=== PATIENT | male | born 1945 | race Caucasian/White ===

== ENCOUNTER 2021-03-20 07:52 | Outpatient (CLI) | payer MEDICARE, SELFPAY ==
[2021-03-20 09:29] LABS: Basophils # 0.1 10^3/uL (0.0-0.1); Basophils % 0.9 %; Eosinophils # 0.1 10^3/uL (0.0-0.8); Eosinophils % 0.7 %; Hemoglobin 17.3 g/dL (11.7-16.6); Lymphocytes % 30.4 %; Mean Corpuscular HGB Conc 33.9 g/dL (30.0-36.0); Mean Corpuscular Hemoglobin 32.3 pg (28.0-34.0); Mean Corpuscular Volume 95.1 fl (80-94); Mean Platelet Volume 10.3 fL (7.4-10.4); Monocytes # 0.5 10^3/uL (0.2-0.9); Neutrophils % 59.6 %; Nucleated Red Blood Cells % 0 %; Platelet Count 113 10^3/cmm (130-400); Red Blood Count 5.36 10^6/uL (4.1-5.3); Red Cell Distribution Width 12.3 % (12.1-15.1); White Blood Count 6.7 10^3/uL (4.0-10.0)
[2021-03-20 09:48] LABS: Alanine Aminotransferase 59 U/L (0-41); Albumin Level 4.2 g/dL (3.5-5.2); Alkaline Phosphatase 64 IU/L (40-130); Anion Gap 17.3 (5-19); Aspartate Amino Transferase 50 U/L (0-40); Blood Urea Nitrogen 10 mg/dL (8-23); Carbon Dioxide 22 mmol/L (22-29); Chloride 101 mmol/L (98-107); Ferritin 546 ng/mL (30-400); Globulin 4.1 g/dL (1.3-4.6); Glucose 147 mg/dL (65-115); Iron 92 ug/dL (59-158); Osmolality Calculated 284 mOsm/kg (285-295); Percent Saturation 29.7 % (20-50); Potassium 4.3 mmol/L (3.5-5.1); Sodium 136 mmol/L (136-145); Total Bilirubin 0.6 mg/dL (0.15-1.2); Total Iron Binding Capacity 309 mcg/dl; Total Protein 8.3 g/dL (6.6-8.7); Unsaturated Iron Binding 217 ug/dL (112-347)
[2021-03-20 10:34] LABS: Tumor Marker Alpha Fetoprotein 5.7 ng/mL (0-8.3)
--- NOTE | 2021-03-20 14:39 | ONC CON_ITS ---
Dr. Ascencio New Patient Note Patient: Emmanuel Damon Unit #: [id number]: 1945 Dicatated By: Abhinav Ascencio M.D.Date of Visit: Mar 20, 2021 Onc MED New Patient/Consult Referring Physician: Dr. Abhinav Murillo M.D. Chief Complaint: Elevated transferrin saturation and ferritin. History of Present Illness: This is a 75-year-old man with elevated transferrin saturation and an elevated ferritin level. He also was found to have a lesion in the liver on hepatic ultrasound. He has hypertension, hyperlipidemia, and type 2 diabetes. He has, however, been in good general health. On his scheduled follow-up with Dr. Murillo in February 2021 he was noted to have mildly elevated liver enzymes. His additional laboratory studies on 02/19/2021 included CBC showing hemoglobin borderline high at 17.6 g with hematocrit 51.5%. The white blood cell count was 8100 and the platelet count was 129,000. Comprehensive metabolic profile showed normal renal function with BUN 16 and creatinine 0.8 mg/dL. Bilirubin was borderline high at 1.2 mg/dL with SGOT elevated at 89.0 U/L and SGPT elevated at 89.0 U/L. The alkaline phosphatase was normal at 68.0 U/L. His viral hepatitis screen was negative. His serum iron studies showed elevated transferrin saturation at 56% and his ferritin was elevated at 648 ng/mL. An abdominal ultrasound showed a slightly enlarged gallbladder. The liver showed an area of heterogeneous echotexture in the left lobe measuring 2.7 x 3.3 x 3.4 cm, possibly adenoma or hemangioma and less likely a metastatic lesion or primary cancer, but those were not excluded. He says he has been feeling fine. He has normal energy and activity tolerance. ECOG score 0. His appetite has been good and his weight has been stable. He has no fever or night sweats. He has not complained of shortness of breath, cough, or chest pain. He has had no abdominal pain or other GI symptoms. He has no complaints. He has no significant joint or bone pain. He does not complain of headache or dizziness. He has no numbness/paresthesia or other focal neurologic symptoms. Past Medical History: His medical history includes hyperlipidemia, hypertension, and type II diabetes. He has a history of nephrolithiasis. Past Surgical History: He has had no prior surgeries. Medications: Atorvastatin Calcium 1 Tablet (of 10 mg) Oral daily, Lisinopril 1 Tablet (of 10 mg) Oral daily, Metoprolol Succinate ER 1 Tablet (of 50 mg) Tablet SR 24 HR Oral daily Allergies: No Known Allergies. Social History: Mr. Damon is . 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 He is a non-smoker. He drinks an occasional beer. Family History: Father of lung cancer at age 70. Mother with congestive heart failure at age 72. 1 brother in a motor vehicle accident at age 21. Two other brothers are in good health. Two daughters and a son also are in good health. Review Of Symptoms: Constitutional - He has been feeling fine. His energy has been good and he has normal activity. Appetite is good and weight is stable. No fever, night sweats, or hot flashes. ECOG score is 0, Eyes - No change in vision, ENMT - No hearing loss or tinnitus. He has occasional allergy related sinus symptoms. No mouth sores. No sore throat or difficulty swallowing, Hematologic/Lymphatic - No abnormal bruising or bleeding, Respiratory - No shortness of breath. No cough. No pleuritic pain or hemoptysis, Cardiovascular - No angina pain. No palpitations, Gastrointestinal - No nausea or vomiting. No heartburn or acid reflux. No diarrhea or constipation. No blood in the stool or black stools, Genitourinary (M) - No dysuria or hematuria. No urinary frequency. No urgency or incontinence, Musculoskeletal - No joint or bone pain, Integumentary - No skin rash or other skin changes, Neurologic - No headache or dizziness. No numbness or tingling. No other focal neurologic symptoms, Psychiatric - No anxiety or depression. No insomnia. Vital Signs: Performed on Mar 20, 2021 08:35: 0, 0, 30.99 (HIGH), 2.06 sq.m, 68 in, 99 %, 77 /min, 17 /min, 149/88 mm(hg) (HIGH), 98.4 F, and 203.8 lbs (HIGH). Physical Examination: Constitutional - He appears to be in good general health, Eyes - Sclerae nonicteric. Conjunctivae clear, ENMT - No lesions noted in the oral cavity, Neck - No mass or thyromegaly, Hematologic/Lymphatic - No cervical, clavicular, or axillary adenopathy, Respiratory - Lungs are clear with good air movement bilaterally, Cardiovascular - Heart rhythm is regular. There is no murmur, gallop, or rub noted, Abdomen - Soft and non-tender. Liver and spleen are not enlarged. There is no abdominal mass or ascites noted and there is no inguinal adenopathy, Back/Spine - No spine or CVA tenderness noted, Extremities - No edema. Pedal pulses are palpable bilaterally, Integumentary - No rashes. No suspicious skin lesions noted, Neurologic - No focal neurologic deficits noted. Problem List: 1. Elevated transferrin saturation and elevated serum ferritin, suspicious for hereditary hemochromatosis. 2. Ultrasound evidence of left hepatic lobe lesion of uncertain significance. 3. Hypertension. 4. Hyperlipidemia. 5. Type 2 diabetes. 6. History of nephrolithiasis. Problems Addressed with this Encounter and Plan: Patient presenting with mild transaminitis was found to have elevated transferrin saturation and ferritin levels, highly suspicious for hereditary hemochromatosis. He also was found on ultrasound to have a left hepatic lobe lesion. The significance is uncertain, but if he is confirmed to have hereditary hemochromatosis he would be at risk for primary hepatocellular carcinoma. The laboratory findings were reviewed with the patient and we discussed the clinical implications. He will have additional laboratory studies today to include CBC, comprehensive metabolic profile, repeat serum iron studies and ferritin, and alpha-fetoprotein level, and an HFE gene analysis. He will have further evaluation as indicated. In the meantime, I will review the ultrasound findings with the radiologist to determine the most appropriate further imaging for the hepatic lesion. Signed By: Abhinav Ascencio M.D. <<Signature on File>>
== END 2021-03-20 07:53 | disposition home or self-care (01) ==
LOC: ONCMED 08:04
PROVIDERS: PCP Internal Medicine; Visit Provider Internal Medicine Medical Oncology
DX: R74.01 Elevation of levels of liver transaminase levels (principal); E83.110 Hereditary hemochromatosis; R79.89 Other specified abnormal findings of blood chemistry; I10 Essential (primary) hypertension; K76.9 Liver disease, unspecified; E11.9 Type 2 diabetes mellitus without complications; E78.5 Hyperlipidemia, unspecified
CPT/HCPCS: 36415; 80053; 81256; 82105; 82728; 83540; 83550; 85025; 99205

== ENCOUNTER 2021-04-01 15:00 | Outpatient (CLI) | payer MEDICARE, SELFPAY ==
--- NOTE | 2021-04-01 15:08 | CT_ITS ---
WS: [id number] CT ABDOMEN CONTRAST TECHNIQUE: Contrast enhanced CT of the abdomen with coronal and sagittal reformatted images. CLINICAL INFORMATION: LIVER LESION COMPARISON: Ultrasound February 19, 2021 DLP: 762.[address] scans at [facility] use at least one of these dose optimization techniques: automated e xposure control; mA and/or kV adjustment per patient size (includes targeted exams where dose is matc hed to clinical indication); or iterative reconstruction. FINDINGS: Correlation is made to ultrasound February 19, 2021. Cirrhotic configuration to the liver. Enlarged caudate lobe. Diffuse fatty infiltration. Splenomegaly with evidence of portal venous hypertension. Portal vein and splenic vein are patent. No discrete he patic lesions are visualized to correspond to the ultrasound findings. No abnormal enhancing lesions in the liver. Normal GE junction. A few periesophageal lymph nodes. Upper abdominal and paraesophagea l varices. Adrenal glands are normal. Bilateral renal cysts. No hydronephrosis in either kidney. Normal pancreatic parenchymal enhancement. Slightly aneurysmal distal abdominal aorta measuring 2.5 x 2.4 CM. Partially visualized sigmoid dive rticulosis. Celiac and SMA are patent. CT/CT abdomen w con* [id number] IMPRESSION: 1. Cirrhosis with diffuse fatty infiltration of the liver. 2. No hepatic lesions corresponding to the ultrasound findings. No suspicious enhancing liver foci. No intrahepatic biliary ductal dilatation. Liver can be f urther evaluated with MRI versus 3 month ultrasound follow-up. 3. Evidence of portal venous hypertension with splenomegaly. 4. Small bilateral renal cysts largest in the left measuring 3.1 CM. 5. Slightly aneurysmal infrarenal abdominal aorta measuring 2.4 x 2.4 cm.
[2021-04-01] MEDS: iohexol 300 mg/mL 100 mL Btl IV (16:03)
== END 2021-04-01 15:01 | disposition home or self-care (01) ==
LOC: RAD 15:06
PROVIDERS: PCP Internal Medicine; Visit Provider Internal Medicine Medical Oncology
DX: K76.9 Liver disease, unspecified (principal); K74.60 Unspecified cirrhosis of liver; K76.0 Fatty (change of) liver, not elsewhere classified; R16.1 Splenomegaly, not elsewhere classified; Q61.02 Congenital multiple renal cysts; I71.4 Abdominal aortic aneurysm, without rupture
CPT/HCPCS: 74160

== ENCOUNTER 2021-04-02 08:54 | Outpatient (CLI) | payer MEDICARE, SELFPAY ==
[2021-04-02 11:21] LABS: Hepatitis A Antibody IgM Non-Reactive (Nonreactive); Hepatitis B Core AB, Total Non-Reactive (Nonreactive); Hepatitis B Surface AB 3.5 (11.5-1000); Hepatitis B Surface Antigen Non-Reactive (Nonreactive); Hepatitis C Virus Antibody Non-Reactive (Nonreactive)
--- NOTE | 2021-04-02 12:30 | ONC FU_ITS ---
Dr. Ascencio Patient Follow-Up Note Patient: Emmanuel Damon Unit #: [id number]: 1945 Dicatated By: Abhinav Ascencio M.D.Date of Visit:Apr 02, 2021 Onc Med Follow-up/Prog Note Chief Complaint: Hemochromatosis. History of Present Illness: This is a 75-year-old man with hereditary hemochromatosis. On a scheduled follow-up with Dr. Murillo in February 2021 he was noted to have mildly elevated liver enzymes. His additional laboratory studies on 02/19/2021 included CBC showing hemoglobin borderline high at 17.6 g with hematocrit 51.5%. The white blood cell count was 8100 and the platelet count was 129,000. Comprehensive metabolic profile showed normal renal function with BUN 16 and creatinine 0.8 mg/dL. Bilirubin was borderline high at 1.2 mg/dL with SGOT elevated at 89.0 U/L and SGPT elevated at 89.0 U/L. The alkaline phosphatase was normal at 68.0 U/L. His viral hepatitis screen was negative. His serum iron studies showed elevated transferrin saturation at 56% and his ferritin was elevated at 648 ng/mL. An abdominal ultrasound showed a slightly enlarged gallbladder. The liver showed an area of heterogeneous echotexture in the left lobe measuring 2.7 x 3.3 x 3.4 cm, possibly adenoma or hemangioma and less likely a metastatic lesion or primary cancer, but those were not excluded. I had seen him initially on 03/20/2021. His CBC at that time showed slightly elevated hemoglobin at 17.3 g with hematocrit 51.0%, white blood cell count 6700, and platelet count slightly low at 113,000. Comprehensive metabolic profile again showed slightly elevated SGOT and SGPT with normal bilirubin and normal alkaline phosphatase. The serum iron was normal at 92 mcg/dL with transferrin saturation also normal at 29.7%. The ferritin was elevated at 546 ng/mL. His AFP level was in normal range at 5.7 ng/mL. 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 According to the accompanying literature, less than 2% of individuals with that genotype developed symptoms or clinical evidence of iron overload. His CT of the abdomen on 04/01/2021 showed a cirrhotic configuration to the liver with an enlarged caudate lobe. There was evidence for diffuse fatty infiltration, and there was splenomegaly with evidence of portal venous hypertension. No discrete hepatic lesions were visualized to correspond with the ultrasound findings. There was evidence for upper abdominal and periesophageal varices. A few paraesophageal lymph nodes were noted. His other medical illnesses include hypertension and hyperlipidemia. He has type 2 diabetes, which is diet controlled. He also has a history of nephrolithiasis. He is a non-smoker. Alcohol use has been limited to just an occasional beer. He is seen for a follow-up visit. He has been feeling pretty good generally. He has good energy and he has normal activity. ECOG score 0. His appetite is good. He has no fever or night sweats. He has occasional sinus congestion. He uses Flonase as needed. He has not had sore mouth or throat. He does not complain of cough, and he has not been having shortness of breath or chest pain. He currently has no GI or complaints. He has no significant joint or bone pain. He does not complain of headache or dizziness, and he has no focal neurologic symptoms. Medications: Atorvastatin Calcium 1 Tablet (of 10 mg) Oral daily, Lisinopril 1 Tablet (of 10 mg) Oral daily, Metoprolol Succinate ER 1 Tablet (of 50 mg) Tablet SR 24 HR Oral daily Allergies: No Known Allergies. Vital Signs: Performed on Apr 02, 2021 10:52 Height - 68.00 in Weight - 204.6 lbs (HIGH) BSA - 2.06 sq.m BMI - 31.11 (HIGH) Temperature - 97.4 F (LOW) Pulse - 60 /min Respiration - 16 /min BP - 134/73 mm(hg) O2 Sat - 96 % Pain - 0 Fatigue - 3 Physical Examination: Constitutional - He looks good generally, Eyes - Sclerae nonicteric. Conjunctivae clear, ENMT - No lesions noted in the oral cavity, Hematologic/Lymphatic - No cervical, clavicular, or axillary adenopathy, Respiratory - Lungs sound clear, Cardiovascular - Heart rhythm is regular. There is no murmur, gallop, or rub noted, Abdomen - Soft. Liver is not enlarged. Spleen is not palpable. There is no abdominal mass or ascites noted and there is no inguinal adenopathy, Extremities - No edema, Neurologic - No focal neurologic deficits noted. Problem List: 1. 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 2. 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 3. Hypertension. 4. Hyperlipidemia. 5. Type 2 diabetes. 6. History of nephrolithiasis. 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 His CT of the abdomen/pelvis showed evidence of hepatic cirrhosis with portal hypertension. However, I am not entirely certain that the cirrhosis is due to iron overload, as his repeat serum iron studies showed normal transferrin saturation and his ferritin level was only moderately elevated. Furthermore, it is reported that only 2% of patients with the homozygous H63D genotype have associated iron overload. The laboratory and CT findings were reviewed with the patient, and we discussed the clinical implications. Although I do have uncertainty as to the cause of the cirrhosis, I think it is prudent to go ahead and start phlebotomizing him. In the meantime, I will repeat his hepatitis serology and I also will arrange for referral to grain loader. I will initially put him on a monthly phlebotomy schedule. I will plan a follow-up visit in 3 months. Signed By: Abhinav Ascencio M.D. <<Signature on File>>
== END 2021-04-02 08:55 | disposition home or self-care (01) ==
LOC: ONCMED 08:57
PROVIDERS: PCP Internal Medicine; Visit Provider Internal Medicine Medical Oncology
DX: E83.110 Hereditary hemochromatosis (principal); I10 Essential (primary) hypertension; E78.5 Hyperlipidemia, unspecified; E11.9 Type 2 diabetes mellitus without complications; Z87.442 Personal history of urinary calculi; K74.60 Unspecified cirrhosis of liver
CPT/HCPCS: 36415; 86705; 86706; 86709; 86803; 87340; 99195; 99214

== ENCOUNTER 2021-05-18 10:19 | Outpatient (CLI) | payer MEDICARE, SELFPAY ==
[2021-05-18 10:51] LABS: Basophils # 0.1 10^3/uL (0.0-0.1); Basophils % 0.9 %; Eosinophils # 0.1 10^3/uL (0.0-0.8); Eosinophils % 0.9 %; Hematocrit 49.5 % (42.0-52.0); Hemoglobin 16.7 g/dL (11.7-16.6); Lymphocytes # 2.5 10^3/uL (0.8-4.8); Lymphocytes % 31.6 %; Mean Corpuscular HGB Conc 33.7 g/dL (30.0-36.0); Mean Corpuscular Hemoglobin 31.9 pg (28.0-34.0); Mean Corpuscular Volume 94.5 fl (80-94); Mean Platelet Volume 10.4 fL (7.4-10.4); Monocytes # 0.7 10^3/uL (0.2-0.9); Monocytes % 9.3 %; Neutrophils # 4.53 10^3/uL (1.8-7.7); Neutrophils % 56.9 %; Nucleated Red Blood Cells % 0 %; Platelet Count 114 10^3/cmm (130-400); Red Blood Count 5.24 10^6/uL (4.1-5.3); Red Cell Distribution Width 12.4 % (12.1-15.1)
[2021-05-18 11:10] LABS: Alanine Aminotransferase 46 U/L (0-41); Albumin Level 4.3 g/dL (3.5-5.2); Alkaline Phosphatase 59 IU/L (40-130); Anion Gap 14.2 (5-19); Aspartate Amino Transferase 43 U/L (0-40); Blood Urea Nitrogen 12 mg/dL (8-23); Carbon Dioxide 24 mmol/L (22-29); Chloride 101 mmol/L (98-107); Globulin 3.8 g/dL (1.3-4.6); Glucose 152 mg/dL (65-115); Osmolality Calculated 283 mOsm/kg (285-295); Potassium 4.2 mmol/L (3.5-5.1); Sodium 135 mmol/L (136-145); Total Bilirubin 0.7 mg/dL (0.15-1.2); Total Protein 8.1 g/dL (6.6-8.7)
[2021-05-18 11:25] LABS: Ferritin 370 ng/mL (30-400); Iron 146 ug/dL (59-158); Percent Saturation 51.2 % (20-50); Total Iron Binding Capacity 285 mcg/dl; Unsaturated Iron Binding 139 ug/dL (112-347)
== END 2021-05-18 10:20 | disposition home or self-care (01) ==
PROVIDERS: PCP Internal Medicine; Visit Provider Internal Medicine Medical Oncology
DX: E83.110 Hereditary hemochromatosis (principal)
CPT/HCPCS: 36415; 80053; 82728; 83540; 83550; 85025; 99195

== ENCOUNTER 2021-06-18 10:25 | Outpatient (CLI) | payer MEDICARE, SELFPAY ==
[2021-06-18 11:09] LABS: Basophils # 0.1 10^3/uL (0.0-0.1); Basophils % 0.9 %; Eosinophils % 0.6 %; Hematocrit 49.5 % (42.0-52.0); Lymphocytes # 2.1 10^3/uL (0.8-4.8); Lymphocytes % 31.6 %; Mean Corpuscular HGB Conc 34.3 g/dL (30.0-36.0); Mean Corpuscular Hemoglobin 32.5 pg (28.0-34.0); Mean Corpuscular Volume 94.6 fl (80-94); Monocytes # 0.6 10^3/uL (0.2-0.9); Monocytes % 9.2 %; Neutrophils # 3.83 10^3/uL (1.8-7.7); Neutrophils % 57.5 %; Nucleated Red Blood Cells % 0 %; Platelet Count 110 10^3/cmm (130-400); Red Blood Count 5.23 10^6/uL (4.1-5.3); Red Cell Distribution Width 12.1 % (12.1-15.1); White Blood Count 6.7 10^3/uL (4.0-10.0)
== END 2021-06-18 10:26 | disposition home or self-care (01) ==
PROVIDERS: PCP Internal Medicine; Visit Provider Internal Medicine Medical Oncology
DX: E83.110 Hereditary hemochromatosis (principal)
CPT/HCPCS: 85025; 99195

== ENCOUNTER 2021-07-22 12:14 | Oncology outpatient (recurring) (ONCR) | payer MEDICARE, SELFPAY ==
[2021-07-22 14:15] VITALS: BP 109/64; PULSE 86; RESP 16; O2SAT 94
[2021-07-22 14:50] VITALS: BP 85/68; PULSE 93; RESP 18; O2SAT 94
[2021-07-22 15:00] LABS: Alanine Aminotransferase 42 U/L (0-41); Albumin Level 4.4 g/dL (3.5-5.2); Alkaline Phosphatase 61 IU/L (40-130); Anion Gap 15.3 (5-19); Aspartate Amino Transferase 41 U/L (0-40); Blood Urea Nitrogen 12 mg/dL (8-23); Calcium 9.8 mg/dL (8.5-10.5); Carbon Dioxide 24 mmol/L (22-29); Chloride 100 mmol/L (98-107); Ferritin 185 ng/mL (30-400); Globulin 4.6 g/dL (1.3-4.6); Glucose 101 mg/dL (65-115); Iron 84 ug/dL (59-158); Osmolality Calculated 280 mOsm/kg (285-295); Potassium 4.3 mmol/L (3.5-5.1); Sodium 135 mmol/L (136-145); Total Bilirubin 0.5 mg/dL (0.15-1.2); Total Iron Binding Capacity 335 mcg/dl; Unsaturated Iron Binding 251 ug/dL (112-347)
[2021-07-22 15:03] VITALS: BP 101/61; PULSE 93; RESP 16; O2SAT 94
== END 2021-08-04 23:59 | disposition home or self-care (01) ==
PROVIDERS: PCP Internal Medicine; Referring Provider Internal Medicine; Visit Provider Internal Medicine Medical Oncology
DX: E83.110 Hereditary hemochromatosis (principal); K76.6 Portal hypertension; Z79.899 Other long term (current) drug therapy
CPT/HCPCS: 36415; 80053; 82728; 83540; 83550; 85025; 99195; 99214; 99999

== ENCOUNTER 2022-03-11 10:03 | Oncology outpatient (recurring) (ONCR) | payer MEDICARE, SELFPAY ==
[2022-03-11 11:28] LABS: Basophils # 0.1 10^3/uL (0.0-0.1); Basophils % 0.8 %; Eosinophils # 0.1 10^3/uL (0.0-0.8); Eosinophils % 0.9 %; Hematocrit 48.6 % (42.0-52.0); Hemoglobin 16.2 g/dL (11.7-16.6); Lymphocytes # 2.1 10^3/uL (0.8-4.8); Lymphocytes % 28.2 %; Mean Corpuscular HGB Conc 33.3 g/dL (30.0-36.0); Mean Corpuscular Volume 93.1 fl (80-94); Mean Platelet Volume 10.6 fL (7.4-10.4); Monocytes # 0.7 10^3/uL (0.2-0.9); Monocytes % 8.9 %; Neutrophils # 4.48 10^3/uL (1.8-7.7); Neutrophils % 60.8 %; Nucleated Red Blood Cells % 0 %; Platelet Count 118 10^3/cmm (130-400); Red Blood Count 5.22 10^6/uL (4.1-5.3); Red Cell Distribution Width 12.8 % (12.1-15.1); White Blood Count 7.4 10^3/uL (4.0-10.0)
[2022-03-11 11:47] LABS: Alanine Aminotransferase 44 U/L (0-41); Albumin Level 3.8 g/dL (3.5-5.2); Alkaline Phosphatase 66 U/L (40-130); Anion Gap 12.6 (5-19); Aspartate Amino Transferase 38 U/L (0-40); Blood Urea Nitrogen 12 mg/dL (8-23); Calcium 9.2 mg/dL (8.5-10.5); Carbon Dioxide 27 mmol/L (22-29); Chloride 102 mmol/L (98-107); Ferritin 120 ng/mL (30-400); Globulin 4.3 g/dL (1.3-4.6); Glucose 159 mg/dL (65-115); Iron 85 ug/dL (59-158); Osmolality Calculated 287 mOsm/kg (285-295); Percent Saturation 27.8 % (20-50); Potassium 4.6 mmol/L (3.5-5.1); Sodium 137 mmol/L (136-145); Total Bilirubin 0.8 mg/dL (0.15-1.2); Total Iron Binding Capacity 305 mcg/dl; Total Protein 8.1 g/dL (6.6-8.7); Unsaturated Iron Binding 220 ug/dL (112-347)
[2022-03-11 13:45] VITALS: BP 122/83; PULSE 58; RESP 18; TEMP 36.2; O2SAT 98
== END 2022-04-06 23:59 | disposition home or self-care (01) ==
PROVIDERS: PCP Internal Medicine; Referring Provider Internal Medicine; Visit Provider Internal Medicine Medical Oncology
DX: E83.110 Hereditary hemochromatosis (principal); Z79.899 Other long term (current) drug therapy
CPT/HCPCS: 80053; 82728; 83540; 83550; 85025; 99195

== ENCOUNTER 2022-04-22 09:49 | Oncology outpatient (recurring) (ONCR) | payer MEDICARE, SELFPAY ==
[2022-04-22 10:38] LABS: Basophils % 0.3 %; Eosinophils # 0.1 10^3/uL (0.0-0.8); Eosinophils % 1.1 %; Hematocrit 45.7 % (42.0-52.0); Hemoglobin 15.2 g/dL (11.7-16.6); Lymphocytes # 1.6 10^3/uL (0.8-4.8); Lymphocytes % 25.2 %; Mean Corpuscular HGB Conc 33.3 g/dL (30.0-36.0); Mean Corpuscular Hemoglobin 30.2 pg (28.0-34.0); Mean Corpuscular Volume 90.9 fl (80-94); Mean Platelet Volume 10.6 fL (7.4-10.4); Monocytes # 0.6 10^3/uL (0.2-0.9); Monocytes % 9.1 %; Neutrophils # 3.99 10^3/uL (1.8-7.7); Neutrophils % 63.8 %; Nucleated Red Blood Cells % 0 %; Platelet Count 114 10^3/cmm (130-400); Red Blood Count 5.03 10^6/uL (4.1-5.3); Red Cell Distribution Width 12.7 % (12.1-15.1); White Blood Count 6.3 10^3/uL (4.0-10.0)
[2022-04-22 10:50] LABS: Alanine Aminotransferase 45 U/L (0-41); Albumin Level 4.1 g/dL (3.5-5.2); Alkaline Phosphatase 73 U/L (40-130); Blood Urea Nitrogen 10 mg/dL (8-23); Calcium 9.3 mg/dL (8.5-10.5); Carbon Dioxide 26 mmol/L (22-29); Chloride 99 mmol/L (98-107); Ferritin 54 ng/mL (30-400); Globulin 3.5 g/dL (1.3-4.6); Glucose 179 mg/dL (65-115); Iron 63 ug/dL (59-158); Osmolality Calculated 284 mOsm/kg (285-295); Sodium 135 mmol/L (136-145); Total Bilirubin 0.6 mg/dL (0.15-1.2); Total Protein 7.6 g/dL (6.6-8.7)
[2022-04-22 10:54] LABS: Anion Gap 14.7 (5-19); Aspartate Amino Transferase 50 U/L (0-40); Potassium 4.7 mmol/L (3.5-5.1)
[2022-04-22 11:01] LABS: Percent Saturation 18.4 % (20-50); Total Iron Binding Capacity 342 mcg/dl; Unsaturated Iron Binding 279 ug/dL (112-347)
== END 2022-05-04 23:59 | disposition home or self-care (01) ==
PROVIDERS: PCP Internal Medicine; Visit Provider Internal Medicine Medical Oncology
DX: E83.110 Hereditary hemochromatosis (principal); K76.6 Portal hypertension; Z79.899 Other long term (current) drug therapy
CPT/HCPCS: 36415; 80053; 82728; 83540; 83550; 85025

== ENCOUNTER 2024-06-11 09:51 | Oncology outpatient (recurring) (ONCR) | payer MEDICARE, SELFPAY ==
[2024-06-11 10:22] LABS: Basophils % 0.6 %; Eosinophils # 0.1 10^3/uL (0.0-0.8); Eosinophils % 1.3 %; Hematocrit 46.7 % (37-53); Lymphocytes # 1.6 10^3/uL (0.8-4.8); Lymphocytes % 25.7 %; Mean Corpuscular HGB Conc 33.8 g/dL (30-55); Mean Corpuscular Hemoglobin 31.9 pg (27-33); Mean Corpuscular Volume 94.3 fl (82-101); Mean Platelet Volume 10.5 fL (7.4-10.4); Monocytes # 0.6 10^3/uL (0.2-0.9); Monocytes % 9.9 %; Neutrophils # 3.94 10^3/uL (1.8-7.7); Nucleated Red Blood Cells % 0 %; Platelet Count 95 10^3/cmm (157-399); Red Blood Count 4.95 10^6/uL (3.85-5.65); Red Cell Distribution Width 12.6 % (12.1-15.1); White Blood Count 6.35 10^3/uL (3.29-11.43)
--- NOTE | 2024-06-11 11:39 | PC.NURSE ---
After reviewing the orders on file, Dr. Murillo's office was contacted for clarification. No nurse was on site to answer my questions regarding the order on file. Mr. Damon opted to have his IV removed and go home for the day. Mr. Damon will be contacted once a response has been received from Dr. Murillo's office on order clarification.
== END 2024-07-04 23:59 | disposition home or self-care (01) ==
LOC: ONCMED 09:52
PROVIDERS: PCP Family Medicine; Visit Provider Internal Medicine
DX: E83.110 Hereditary hemochromatosis (principal)
CPT/HCPCS: 85025